=== PATIENT | female | born 1960 | race Caucasian/White ===

== ENCOUNTER 2024-01-20 00:13 | Day surgery (SDC) | payer BC, SELFPAY ==
[2024-01-19 16:56] VITALS: BMI 27.6
[2024-01-20] VITALS (8 sets, daily range): BP systolic 117–148; BP diastolic 76–92; PULSE 49–68; RESP 12–21; TEMP 36.9; O2SAT 97–100; BMI 26.6
[2024-01-20 10:28] LABS: Basophils Absolute Auto 0.1 K/mm3 (0.0-0.1); Basophils Percent Auto 0.7 % (0.2-1.2); Eosinophils Absolute Auto 0.1 K/mm3 (0-0.3); Eosinophils Percent Auto 1.2 % (0-4.4); Hematocrit 44.8 % (37.0-47.0); Hemoglobin 14.7 g/dL (12.0-15.0); Immature Granulocyte Absolute 0.02 K/mm3 (0.00-0.031); Immature Granulocyte Percent A 0.2 % (0-0.5); Lymphocytes Absolute Auto 2.79 K/mm3 (0.9-3.2); Lymphocytes Percent Auto 25.6 % (18.3-44.2); Mean Corpuscular HGB Conc 32.8 g/dl (32-36); Mean Corpuscular Hemoglobin 29.6 pg (26-34); Mean Corpuscular Volume 90.3 fl (80-100); Monocytes Absolute Auto 0.7 K/mm3 (0.1-0.6); Monocytes Percent Auto 6.1 % (2.6-8.5); Neutrophils Absolute Auto 7.2 K/mm3 (1.3-6.7); Neutrophils Percent Auto 66.2 % (45.5-73.1); Platelet Count Result 287 k/mm3 (150-375); Red Blood Count 4.96 M/mm3 (4.2-5.4); Red Cell Distribution Width 13.2 % (11.5-14.5); White Blood Count 10.9 K/mm3 (4.5-10.0)
[2024-01-20 10:40] LABS: Anion Gap 9 mmol/L (4-12); Blood Urea Nitrogen 9 mg/dL (7-17); Calcium 9.5 mg/dL (8.4-10.2); Carbon Dioxide 26 mmol/L (22-30); Chloride 107 mmol/L (98-107); Estimated CRCL calculation 78 ml/min; Estimated Glomerular Filt Rate > 60; Glucose 107 mg/dL (65-110); Potassium 3.9 mmol/L (3.4-5.0); Sodium 142 mmol/L (137-145)
--- NOTE | 2024-01-20 11:28 | WPDMODSED ---
Moderate Sedation Note-Pt Data Patient Data Diagnosis: recent onset of anginal chest pain abnormal stress echocardiogram Present Complaint: exertional chest pain Procedure to be performed/Plan: left heart catheterization Allergies Allergy/AdvReac Type Severity Reaction Status Date / Time carbamazepine [From Tegretol] Allergy Hives Verified 01/20/24 10:16 Home Medications Medication Instructions Recorded Confirmed Type Adults Multivitamin 1 day PO DAILY 01/19/24 01/19/24 History Algal [place]-3 DHA 1,200 day PO DAILY 01/19/24 01/19/24 History acetaminophen 500 mg tablet 500 mg PO PRN 01/19/24 01/19/24 History atorvastatin 10 mg tablet (Lipitor) 10 mg PO DAILY 01/19/24 01/19/24 History cetirizine 10 day PO DAILY 01/19/24 01/19/24 History cholecalciferol (vitamin D3) 3,000 units PO DAILY 01/19/24 01/19/24 History clobetasol 0.05 % topical ointment 0.05 applic topical BID 01/19/24 01/19/24 History coenzyme Q10 200 mg capsule 200 mg PO DAILY 01/19/24 01/19/24 History hydroxyzine HCl 25 mg tablet 25 mg PO DAILY 01/19/24 01/19/24 History nicotine 1 day transdermal DAILY 01/19/24 01/19/24 History Current Medications: Active Medications Sodium Chloride (Normal Saline Iv) 500 mls @ 100 mls/hr IV CONT .Q5H LUCIANO Sedation/Anesthesia: No previous sedation/anesthesia problems (including family history). PMFSH Social History Social History Smoking status: Former smoker Second hand tobacco smoke exposure: Yes Smoking end date: 09/09/23 Substance use type: does not use Living arrangements: with family Spiritual care concerns: No Mod Sed Physical Exam Physical Exam Pre Procedural Exam: Normal: Appearance, Neck, Throat, Airway, Lungs, Heart Size, Heart Rate, Heart Rhythm, Neuro Exam and Extremities Hours since solid foods: 12 Hours since liquid intake: 12 Mallampati Classification: class II Internal Medicine - PN: Obj Da Vital Signs Vital Signs: Vital Signs - 24 hr 01/20/24 10:17 Temperature 36.9 C Pulse Rate 67 Respiratory Rate 12 Blood Pressure 148/83 H Pulse Oximetry 100 Oxygen Delivery Room Air Meds/Results Medications: Active Medications Generic Name Dose Route Start Last Admin Trade Name Freq PRN Reason Stop Dose Admin Sodium Chloride 500 mls @ 100 mls/hr 01/20/24 10:00 Normal Saline Iv IV CONT .Q5H LUCIANO Labs 01/20/24 10:15 01/20/24 10:15 Labs: Laboratory Results - last 24 hr 01/20/24 10:15 WBC 10.9 H RBC 4.96 Hgb 14.7 Hct 44.8 MCV 90.3 MCH 29.6 MCHC 32.8 RDW 13.2 Plt Count 287 MPV 10.0 Immature Gran % (Auto) 0.2 Neut % (Auto) 66.2 Lymph % (Auto) 25.6 [place] % (Auto) 6.1 Eos % (Auto) 1.2 Baso % (Auto) 0.7 Lymph # (Auto) 2.79 [place] # (Auto) 0.7 H Eos # (Auto) 0.1 Baso # (Auto) 0.1 Abs Immat Gran (auto) 0.02 Absolute Neuts (auto) 7.2 H Absolute Nucleated RBC 0.000 Nucleated RBC % 0.0 Sodium 142 Potassium 3.9 Chloride 107 Carbon Dioxide 26 Anion Gap 9 BUN 9 Creatinine 0.60 L Estim Creat Clear Calc 78 Estimated GFR > 60 Glucose 107 Calcium 9.5 ASA Classification/Sedation ASA Classification/Sedation ASA Class: III Emergent: No Risks: Risks, benefits and alternatives explained and patient/family accepted plan for sedation. Patient re-evaluated immediately prior to sedation.
--- NOTE | 2024-01-20 12:03 | WPDCARDPROC ---
Cardiac Cath Procedure Note Date of procedure:: 01/20/24 Performing physician:: Shaun Ferrera MD Indication:: chest pain abnormal stress echo Brief clinical history:: this is a 63-year-old woman without previous cardiac history was been having intermittent episodes of chest pain. A stress echo was done to look for evidence of coronary disease and there was evidence of exercise induced ST segment abnormalities indicative of ischemia. Angiography was therefore recommended. Procedure Procedure performed:: Left ventriculogram coronary angiogram Angio-Seal to right femoral artery Sedation/Medication given:: fentanyl 50 mg case start time 11:43 a.m. case end time 12 noon sedation provided Juana Shirley RN, trained observer Access site:: right femoral artery Estimated blood loss:: 20 cc Procedure note:: patient was brought to the cardiac catheterization lab in the postabsorptive state where the right femoral triangle was prepped and draped normal. Anesthesia was provided with 15 cc of lidocaine infiltrated locally. Using the modified Seldinger technique the femoral artery was punctured and 5 [place] vascular sheath was placed. After this left heart catheterization was carried out. I used a 5 [place] pigtail catheter to measure left-sided hemodynamics as well as to inject the left after this I used standard FL 4 catheter to engage and inject the left coronary artery in multiple projections and then a JR4 catheter right coronary artery in orthogonal projections. The angiograms were reviewed and the case was terminated. I then performed angiogram of the femoral artery through this sheath after which a 6 [place] Angio-Seal device was deployed with a good hemostatic result. Procedure was well tolerated and uncomplicated there was no sign of groin hematoma upon leaving the cardiac catheterization lab. Findings:: Hemodynamics: Central aortic pressure is 166/76 left ventricle 166/0 end-diastolic 8 there was no gradient on pullback across the aortic valve. Left ventricle: The LV is normal in size all segments contract vigorously the global ejection fraction by visual estimation is 65%. The left main coronary artery is medium in caliber and widely patent the left anterior descending is a medium caliber artery extending down to the apex. In its apical portion it becomes rather small in caliber but angiographically the LAD is unremarkable the circumflex is a medium caliber vessel giving rise to the marginal branches. It is angiographically normal. The right coronary artery is moderate caliber dominant posterior circulation. The right coronary is smooth and angiographically normal. Conclusion:: 1. Right coronary dominant circulation with no angiographic abnormalities 2. preserved left ventricular systolic function 3. based on these findings the patient's symptoms appear to be not cardiac and her stress test appears to be a false-positive Shaun Ferrera MD [facility]
== END 2024-01-20 15:09 | disposition home or self-care (01) ==
PROVIDERS: PCP Family Medicine; Visit Provider Specialist
PROC: 4A023N7 Measurement of Cardiac Sampling and Pressure, Left Heart, Percutaneous Approach (ICD-10-PCS; CPT 93452; principal; 2024-01-20 11:30)
DX: R94.39 Abnormal result of other cardiovascular function study (principal); L90.0 Lichen sclerosus et atrophicus; Z98.890 Other specified postprocedural states; Z98.51 Tubal ligation status; Z87.891 Personal history of nicotine dependence; Z80.3 Family history of malignant neoplasm of breast; Z80.41 Family history of malignant neoplasm of ovary; Z82.49 Family history of ischemic heart disease and other diseases of the circulatory system
CPT/HCPCS: 36415; 80048; 85025; 93458; C1760; C1887; C1894; G0269; J1644; J2250; J3010; J7040